=== PATIENT | male | born 1975 | race Caucasian/White ===

== ENCOUNTER 2016-11-04 15:45 | Emergency (ER) | payer MEDICAID ==
[2016-11-04 17:47] LABS: HEMOGLOBIN 12.5 gm/dl (14.0-17.5); RED BLOOD COUNT 4.32 M/UL (4.20-5.50); WHITE BLOOD COUNT 7.4 K/UL (4.5-11.0)
[2016-12-23] MEDS ORDERED: LASIX 40 MG TAB40 MG PO (01:34)
[2016-12-23] MEDS ORDERED: ALDACTONE50 MG PO (01:34)
[2016-12-23] MEDS ORDERED: SIMVASTATIN20 MG PO (01:35)
[2016-12-23] MEDS ORDERED: DILTIAZEM ER360 MG PO (01:35)
[2016-12-23] MEDS ORDERED: TERAZOSIN HCL10 MG PO (01:35)
[2016-12-23] MEDS ORDERED: SYNTHROID100 MCG PO (01:36)
[2016-12-23] MEDS ORDERED: ANTIVERT 25MG T25 MG PO (01:36)
[2016-12-23] MEDS ORDERED: NEURONTIN 100100 MG PO (01:36)
[2016-12-23] MEDS ORDERED: ASPIR 8181 MG PO (01:36)
[2016-12-23] MEDS ORDERED: NOVOLIN 70100 UNIT/1 SQ (01:37)
[2016-12-23] MEDS ORDERED: NOVOLIN 70100 UNITS/ SQ (01:37)
[2016-12-29] MEDS ORDERED: LASIX 40 MG TAB40 MG PO (19:26)
[2016-12-29] MEDS ORDERED: CATAPRES 0.1MG0.1 MG PO (19:26)
[2016-12-29] MEDS ORDERED: HYDRALAZINE HC100 MG PO (19:27)
[2016-12-29] MEDS ORDERED: THERAGRAN M TAB1 EA PO (19:27)
[2016-12-29] MEDS ORDERED: PROCARDIA XL30 MG PO (19:27)
[2016-12-29] MEDS ORDERED: LIPITOR TAB 2020 MG PO (19:31)
[2016-12-29] MEDS ORDERED: COREG25 MG PO (19:35)
[2017-01-15] MEDS ORDERED: VITAMIN B-121000 MC2 SL (08:16)
[2017-01-18] MEDS ORDERED: PLAVIX 75 MG TA75 MG PO (12:49)
[2017-01-18] MEDS ORDERED: FOLIC ACID1 MG PO (12:50)
[2017-01-18] MEDS ORDERED: SODIUM BICARBO650 MG PO (12:55)
== END 2016-11-04 20:20 | disposition home or self-care (01) ==
LOC: ER1 15:45
PROVIDERS: Emergency Medicine
DX: K80.50 Calculus of bile duct without cholangitis or cholecystitis without obstruction (principal); I10 Essential (primary) hypertension; E11.9 Type 2 diabetes mellitus without complications; Z79.4 Long term (current) use of insulin; Z79.899 Other long term (current) drug therapy
CPT/HCPCS: 36415; 74022; 80053; 82150; 83690; 85025; 99284

== ENCOUNTER → 2016-11-15 | Outpatient (CLI) | payer MEDICAID ==
[~2016-11-15] MED LIST: ALDACTONE50 MG PO; ANTIVERT 25MG T25 MG PO; ASPIR 8181 MG PO; CATAPRES 0.1MG0.1 MG PO; COREG25 MG PO; DILTIAZEM ER360 MG PO; FOLIC ACID1 MG PO; HYDRALAZINE HC100 MG PO; LASIX 40 MG TAB40 MG PO; LIPITOR TAB 2020 MG PO; NEURONTIN 100100 MG PO; NOVOLIN 70100 UNIT/1 SQ; NOVOLIN 70100 UNITS/ SQ; PLAVIX 75 MG TA75 MG PO; PROCARDIA XL30 MG PO; SIMVASTATIN20 MG PO; SODIUM BICARBO650 MG PO; SYNTHROID100 MCG PO; TERAZOSIN HCL10 MG PO; THERAGRAN M TAB1 EA PO; VITAMIN B-121000 MC2 SL
== END ==
LOC: OPSV2 11:48
PROVIDERS: Anesthesiology
DX: Z01.812 Encounter for preprocedural laboratory examination (principal); K80.20 Calculus of gallbladder without cholecystitis without obstruction; I10 Essential (primary) hypertension; E11.9 Type 2 diabetes mellitus without complications; E78.00 Pure hypercholesterolemia, unspecified; E03.9 Hypothyroidism, unspecified
CPT/HCPCS: 36415; 80048